=== PATIENT | female | born 1990 | race African-American/Black ===

== ENCOUNTER 2017-10-22 13:34 | Inpatient (IN) | payer OTHER ==
--- NOTE | 2017-10-22 14:27 | HP ---
COWS - Scale Resting Pulse: 0= IN 80 or Below Sweatin= Chills/Flushing Restless Observation: 3= Extraneous Movement Pupil Size: 2= Moderately Dilated Bone or Joint Aches: 4=Acute Joint/Muscle Pain Runny Nose/ Eye Tearin= None GI Upset > 30mins: 3= Vomiting/Diarrhea Tremor Observation: 1= Tremor [place], Not Seen Yawning Observation: 1= 1-2x During Session Anxiety or Irritability: 2=Irritable/Anxious Goose Flesh Skin: 0=Smooth Skin COWS Score: 17 Admission [facility] Chief Complaint: HEROIN WITHDRAWAL SX Allergies/Adverse Reactions: Allergies Allergy/AdvReac Type Severity Reaction Status Date / Time No Known Allergies Allergy Verified 10/22/17 14:11 History of Present Illness: 27 Y/O AA/TRANSGENDER MALE WITH A HX OF HEROIN DEPENDENCE SEEKING DETOX [place]. FIRST TIME HERE. PT REPORTS PRIMARY CARE WITH [facility] AT [address] [place] [address]. KYLE Dan PT HAS A HX OF HIV+ SINCE 2012. REPORTS HE IS CURRENTLY ON TRUVADA AND TIVICAY BUT DID NOT BRING ANY MEDS WITH HIM. Exam Limitations: No Limitations - Ebola screening Have you traveled outside of the country in the last 21 days: No Have you had contact with anyone from an Ebola affected area: No Have you been sick,other than usual withdrawal symptoms: No Do you have a fever: No - Review of Systems Constitutional: Chills, Loss of Appetite, Night Sweats, Changes in sleep, Unintentional Wgt. Loss EENT: reports: Tearing, Nose Congestion, Dental Problems (MISSING TEETH) Respiratory: reports: Shortness of Breath (HX ASTHMA), Wheezing Cardiac: reports: Lightheadedness GI: reports: Constipated, Nausea, Poor Appetite, Poor Fluid Intake, Vomiting : reports: Dysuria Musculoskeletal: reports: Back Pain, Joint Pain, Muscle Pain Integumentary: reports: No Symptoms Reported Neuro: reports: Numbness, Tingling, Tremors, Unsteady Gait Endocrine: reports: No Symptoms Reported Hematology: reports: No Symptoms Reported Psychiatric: reports: Orientated x3, Anxious, Depressed Other Systems: Reviewed and Negative Patient History - Patient Medical History Hx Anemia: No Hx Asthma: Yes (MDI) Hx Chronic Obstructive Pulmonary Disease (COPD): No Hx Cardiac Disorders: No Hx Hypertension: No Hx Hypercholesterolemia: No HX Cerebrovascular Accident: No Hx Seizures: No Hx Diabetes: No Hx Gastrointestinal Disorders: No Hx Genitourinary Disorders: No Hx Sexually Transmitted Disorders: No Hx Renal Disease (ESRD): No Hx Thyroid Disease: No Hx Human Immunodeficiency Virus (HIV): Yes (SINCE 2012;ON TRUVADA AND TIVICAY.) Hx Hepatitis C: No Hx Depression: Yes (ON MED) Hx Suicide Attempt: Yes (SELF CUTTING;DENIES CURRENT S/I TODAY) Hx Bipolar Disorder: Yes Hx Schizophrenia: Yes - Patient Surgical History Past Surgical History: Yes Hx Breast Surgery: Yes (BREAST AUGMENTATION) Hx Genitourinary Surgery: Yes (ORCHIECTOMY) Anesthesia Reaction: No - PPD History Previous Implant?: Yes Documented Results: Negative w/o proof Implanted On Prior [facility] Admission?: No PPD to be Administered?: Yes - Reproductive History Patient is a Female of Child Bearing Age (11 -55 yrs old): No (TRANSGENDER MALE) - Smoking Cessation Smoking history: Current every day smoker Have you smoked in the past 12 months: Yes Aproximately how many cigarettes per day: 10 Hx Chewing Tobacco Use: No Initiated information on smoking cessation: Yes 'Breaking Loose' booklet given: 10/22/17 - Substance & Tx. History Hx Alcohol Use: No (DENIES) Hx Substance Use: Yes (HEROIN) Substance Use Type: Heroin Hx Substance Use Treatment: No ([facility] [place]) - Substances Abused Heroin Route: Inhalation Frequency: Daily Amount used: 7 BAGS Age of first use: 27 Date of Last Use: 10/20/17 Family Disease History - Family Disease History Family Disease History: Diabetes: Grandparent (GRANDMOTHER) Admission Physical Exam S - Vital Signs Vital Signs: Vital Signs - 24 hr 10/22/17 14:17 Temperature 96 F L Pulse Rate 66 Respiratory 20 Rate Blood Pressure 129/71 - Physical General Appearance: Yes: Moderate Distress, Irritable, Anxious, Other (RESTLESS) HEENTM: Yes: EOMI, Normocephalic, FREDY, Pharynx Normal Respiratory: Yes: Chest Non-Tender, Lungs Clear, Normal Breath Sounds, No Respiratory Distress Neck: Yes: No masses,lesions,Nodules, Supple, Trachea in good position Breast: Yes: Breast Exam Deferred Cardiology: Yes: Regular Rhythm, Regular Rate, S1, S2 Abdominal: Yes: Normal Bowel Sounds, Non Tender, Flat, Soft Genitourinary: Yes: Other (N/C) Back: Yes: Within Normal Limits Musculoskeletal: Yes: full range of Motion, Gait Steady Extremities: Yes: Normal Range of Motion, Non-Tender Neurological: Yes: car cooper II-XII NML intact, Fully Oriented, Alert, Motor Strength 5/5 Integumentary: Yes: Dry, Warm Lymphatic: Yes: Within Normal Limits - Diagnostic (1) Opioid dependence with withdrawal Current Visit: Yes Status: Acute (2) HIV (human immunodeficiency virus infection) Current Visit: Yes Status: Chronic (3) Hx of AIDS Current Visit: Yes Status: Chronic (4) History of psychiatric disorder Current Visit: Yes Status: Chronic (5) S/P breast augmentation Current Visit: Yes Status: Chronic [facility] Level of Care: Medically Managed Detox Regimen/Protocol: Methadone [facility] Breath Alcohol Content Breath Alcohol Content: 0 Urine Pregancy Test - Result Urine Test Results: Negative- NO Line Present Urine Drug Screen - Results Drug Screen Negative: No Urine Drug Screen Results: OPI-Opiates, MTD-Methadone
[2017-10-22] MEDS ORDERED: guaiFENesin/D-METHORPHAN HB 10 ML UNIT-DOSE CUPS PO PRN (14:53)
[2017-10-22] MEDS ORDERED: MAGNESIUM CITRATE 300 ML BOTTLE PO PRN (14:53)
[2017-10-22] MEDS ORDERED: NICOTINE POLACRILEX 2 MG GUM BUC PRN (14:53)
[2017-10-22] MEDS ORDERED: MAG HYDROX/AL HYDROX/SIMETH 30 ML UNIT-DOSE CUP PO PRN (14:53)
[2017-10-22] MEDS ORDERED: MENTHOL/PHENOL 1 EACH UD MM PRN (14:53)
[2017-10-22] MEDS ORDERED: IBUPROFEN 400 MG TABLET (FP) PO PRN (14:53)
[2017-10-22] MEDS ORDERED: P-EPHED 60MG/TRIPROLIDI 2.5MG TABLET PO PRN (14:53)
[2017-10-22] MEDS ORDERED: MAGNESIUM HYDROX 2400MG/30ML ORAL SUSPENSION 30 ML CUP PO PRN (14:53)
[2017-10-22] MEDS ORDERED: LOPERAMIDE HCL 2 MG CAPSULE PO PRN (14:53)
[2017-10-22] MEDS ORDERED: METHADONE HCL 10 MG TABLET (FOR DETOX USE ONLY) PO ONE ×2 (15:15→23:00)
[2017-10-22] MEDS ORDERED: TRIMETHOBENZAMIDE HCL 200MG/2ML INJ IM ONE (15:15)
--- NOTE | 2017-10-22 15:22 | CONSULT ---
[facility] Psychiatric Consult - Data Date of interview: 10/22/17 Admission source: [facility] Identifying data: This is 27 years old AA female, single, unemployed, livinmg alone, on SSI, with history of Schizophrenia, Bipolar Disorder, reports long history abusing Heroin, currently seeking detox after Heroin/Methadone intoxication. Substance Abuse History: - Smoking Cessation. Smoking history: Current every day smoker. Have you smoked in the past 12 months: Yes. Aproximately how many cigarettes per day: 10. Hx Chewing Tobacco Use: No. Initiated information on smoking cessation: Yes. 'Breaking Loose' booklet given: 10/22/17. - Substance & Tx. History. Hx Alcohol Use: No (DENIES). Hx Substance Use: Yes (HEROIN). Substance Use Type: Heroin. Hx Substance Use Treatment: No ([facility] [place]). - Substances Abused. Heroin. Route: Inhalation. Frequency: Daily. Amount used: 7 BAGS. Age of first use: 27. Date of Last Use: 10/20/17 Medical History: HIV+ history Psychiatric History: Patient reports history of Bipolar disorder, Schizophrenioa , reports history of multiple psychiatric hospitalizations with most recent one 4-5 months ago at [facility]. Currently on: Seroquel 200mg po qhs. Abilify 30mg po qd. Patient reports history of suicidal ideation and Suicidal attempets by self cutting her wrists, no stitches applyed , no stitches visible, denies suicidal,homicidal ideation at this time, reports having suicidal ideations when she is ran off her medications. Physical/Sexual Abuse/Trauma History: Unclear Additional Comment: Seroquel 200mg po qhs. Abilify 30mg po qd Mental Status Exam - Mental Status Exam Alert and Oriented to: Person Cognitive Function: Fair Patient Appearance: Unkempt Mood: Suspicious Affect: Constricted Patient Behavior: Cooperative Speech Pattern: Appropriate Voice Loudness: Mildly Loud Thought Process: Goal Oriented Thought Disorder: Being Controlled Hallucinations: Denies Suicidal Ideation: Denies Homicidal Ideation: Denies Insight/Judgement: Fair Sleep: Difficulty falling asleep Appetite: Weight loss Muscle strength/Tone: Normal Gait/Station: Normal Additional Comments: Seroquel 200mg po qhs. Abilify 30mg po qd Psychiatric Findings - Problem List ([place] 1, 2,3) (1) Nicotine dependence Current Visit: Yes Status: Acute (2) Bipolar disorder Current Visit: Yes Status: Acute (3) Schizophrenia Current Visit: Yes Status: Acute (4) Opioid dependence with withdrawal Current Visit: Yes Status: Acute (5) Opioid-induced psychotic disorder Current Visit: Yes Status: Acute - Initial Treatment Plan Initial Treatment Plan: Seroquel 200mg po qhs. Abilify 30mg po qd
[2017-10-22 18:04] LABS: URINE APPEARANCE SLCLOUDY; URINE BILIRUBIN NEGATIVE (<2.0 mg/dL); URINE BLOOD NEGATIVE (NEGATIVE); URINE COLOR YELLOW; URINE GLUCOSE (UA) NEGATIVE (NEGATIVE); URINE KETONE NEGATIVE (NEGATIVE); URINE LEUK ESTERASE NEGATIVE (NEGATIVE); URINE NITRITE NEGATIVE (NEGATIVE); URINE PROTEIN NEGATIVE (NEGATIVE)
[2017-10-22] MEDS: ARIPiprazole 15 MG TABLET PO SCH (18:39)
[2017-10-22] MEDS: NICOTINE 14 MG/24 HOURS TOPICAL PATCH TD SCH (18:43)
[2017-10-22] MEDS: ONDANSETRON *ODT* 4 MG TABLET SL PRN (20:42)
[2017-10-22] MEDS: THIAMINE HCL 100 MG TABLET (FP) PO SCH (22:29)
[2017-10-22] MEDS: cloNIDine HCL 0.1 MG TABLET PO PRN (22:29)
[2017-10-22] MEDS: diazePAM 5 MG TABLET PO PRN (22:29)
[2017-10-22] MEDS: CYCLOBENZAPRINE HCL 10 MG TABLET (FP) PO PRN (22:29)
[2017-10-22] MEDS: QUEtiapine FUMARATE 200 MG TABLET PO SCH (22:30)
[2017-10-23] MEDS ORDERED: METHADONE HCL 10 MG TABLET (FOR DETOX USE ONLY) PO ONE (10:00)
--- NOTE | 2017-10-23 10:03 | EKG ---
Test Reason : Blood Pressure : / mmHG Vent. Rate : 052 BPM Atrial Rate : 071 BPM P-R Int : 000 ms QRS Dur : 086 ms QT Int : 518 ms P-R-T Axes : 074 085 074 degrees QTc Int : 481 ms SINUS RHYTHM WITH 2ND DEGREE A-V BLOCK (MOBITZ I) T WAVE ABNORMALITY, CONSIDER ANTERIOR ISCHEMIA ABNORMAL ECG NO PREVIOUS ECGS AVAILABLE Confirmed by RINA FRANCISCO MD ([id number]) on 10/23/2017 10:02:40 AM Referred By: Confirmed By:RINA FRANCISCO MD
--- NOTE | 2017-10-23 10:17 | PN ---
[facility] COWS - Scale Resting Pulse: 0= MA 80 or Below Sweatin= Chills/Flushing Restless Observation: 1= Difficult to Sit Still Pupil Size: 1= Pupils >than Normal Bone or Joint Aches: 1= Mild Discomfort Runny Nose/ Eye Tearin= Nasal Congestion GI Upset > 30mins: 3= Vomiting/Diarrhea Tremor Observation of Outstretched Hands: 1= Tremor [place], Not Seen Yawning Observation: 1= 1-2x During Session Anxiety or Irritability: 2=Irritable/Anxious Goose Flesh Skin: 0=Smooth Skin COWS Score: 12 BHS Progress Note (SOAP) Subjective: nausea, sweats, interrupted sleep, vomting, not eating, anxiety, trmeors Objective: 10/23/17 10:16 Vital Signs - 24 hr 10/22/17 10/22/17 10/22/17 14:17 18:00 22:00 Temperature 96 F L 97.7 F 97.9 F Pulse Rate 66 67 65 Respiratory 20 16 18 Rate Blood Pressure 129/71 109/65 132/81 10/23/17 10/23/17 10/23/17 00:30 03:30 07:26 Temperature 98 F Pulse Rate 64 Respiratory 18 18 18 Rate Blood Pressure 129/79 Laboratory Tests 10/22/17 15:00 Urine Color Yellow Urine Appearance Slcloudy Urine pH 7.0 Ur Specific [place] 1.027 Urine Protein Negative Urine Glucose (UA) Negative Urine Ketones Negative Urine Blood Negative Urine Nitrite Negative Urine Bilirubin Negative Urine Urobilinogen 2.0 H Ur Leukocyte Esterase Negative labs pending Assessment: 10/23/17 10:16 withdrawla SX, CONT DETOX ZOFRAN FOR NAUSEA, FLUIIDS, SYMPTOMATIC RELIEF OF WITHDRAWAL, CHECK LABS, ENCORUAGE AMBUALTION
[2017-10-23] MEDS: NICOTINE 14 MG/24 HOURS TOPICAL PATCH TD SCH (10:31)
[2017-10-23] MEDS: ARIPiprazole 15 MG TABLET PO SCH (10:31)
[2017-10-23] MEDS: PRENATAL VITAMINS W/ FOLIC ACID TABLET (FP) PO SCH (10:31)
[2017-10-23] MEDS: CYCLOBENZAPRINE HCL 10 MG TABLET (FP) PO PRN (10:32)
[2017-10-23] MEDS: cloNIDine HCL 0.1 MG TABLET PO PRN (10:32)
[2017-10-23] MEDS: diazePAM 5 MG TABLET PO PRN ×2 (10:32→22:16)
[2017-10-23 10:41] LABS: HEMATOCRIT 38.9 % (32.4-45.2); HEMOGLOBIN 13.5 GM/dL (10.7-15.3); MCH 32.5 pg (25.7-33.7); MCHC 34.8 g/dl (32.0-36.0); MEAN CELL VOLUME 93.4 fl (80-96); MEAN PLT VOLUME 7.6 fl (7.5-11.1); PLATELET COUNT 279 K/MM3 (134-434); RBC 4.16 M/mm3 (3.60-5.2); RDW 13.6 % (11.6-15.6); WHITE BLOOD COUNT 5.2 K/mm3 (4.0-10.0)
[2017-10-23] MEDS ORDERED: ONDANSETRON *ODT* 4 MG TABLET SL ONE (10:45)
[2017-10-23 10:53] LABS: ALBUMIN 4.4 g/dl (3.4-5.0); ANION GAP 8 (8-16); BLOOD UREA NITROGEN 18 mg/dL (7-18); CHLORIDE 103 mmol/L (98-107); CO2 25 mmol/L (21-32); GLUCOSE,RANDOM 109 mg/dL (74-106); SODIUM 136 mmol/L (136-145)
[2017-10-23 10:56] LABS: ALK PHOS 89 U/L (45-117); BILIRUBIN,TOTAL 0.5 mg/dL (0.2-1.0); CREATININE 0.8 mg/dL (0.55-1.02); SGOT/AST 55 U/L (15-37); SGPT/ALT 88 U/L (12-78); TOT PROT 7.9 g/dl (6.4-8.2)
[2017-10-23 11:11] LABS: SICKLE CELL SCREEN NEGATIVE (NEGATIVE)
[2017-10-23] MEDS: ACETAMINOPHEN 325 MG TABLET (FP) PO PRN (11:18)
[2017-10-23] MEDS: QUEtiapine FUMARATE 200 MG TABLET PO SCH (22:16)
[2017-10-23] MEDS: THIAMINE HCL 100 MG TABLET (FP) PO SCH (22:16)
[2017-10-23] MEDS: MELATONIN 5 MG TABLETS PO PRN (22:17)
[2017-10-24] MEDS ORDERED: METHADONE HCL 5 MG TABLET (FOR DETOX USE ONLY) PO ONE (10:00)
[2017-10-24] MEDS: ARIPiprazole 15 MG TABLET PO SCH (10:52)
[2017-10-24] MEDS: PRENATAL VITAMINS W/ FOLIC ACID TABLET (FP) PO SCH (10:52)
[2017-10-24] MEDS: NICOTINE 14 MG/24 HOURS TOPICAL PATCH TD SCH (10:52)
[2017-10-24] MEDS: ONDANSETRON *ODT* 4 MG TABLET SL PRN ×2 (11:39→18:23)
[2017-10-24] MEDS: ACETAMINOPHEN 325 MG TABLET (FP) PO PRN (13:01)
--- NOTE | 2017-10-24 15:24 | PN ---
BHS COWS - Scale Resting Pulse: 0= MD 80 or Below Sweatin=Flushed/Facial Moisture Restless Observation: 0= Sits Still Pupil Size: 0= Normal to Room Light Bone or Joint Aches: 2= Severe Diffuse Aches Runny Nose/ Eye Tearin= Nasal Congestion GI Upset > 30mins: 5=Frequent Vomit/Diarrhea Tremor Observation of Outstretched Hands: 2= Slight Tremor Visible Yawning Observation: 1= 1-2x During Session Anxiety or Irritability: 2=Irritable/Anxious Goose Flesh Skin: 0=Smooth Skin COWS Score: 15 S Progress Note (SOAP) Subjective: nauseous weak Objective: 10/24/17 15:21 sleepy but arousable A & O x 3 Vomiting Vital Signs Temperature 100.4 F H 10/24/17 14:00 Pulse Rate 86 10/24/17 14:00 Respiratory Rate 18 10/24/17 14:00 Blood Pressure 119/79 10/24/17 14:00 O2 Sat by Pulse Oximetry (%) Laboratory Last Values WBC 5.2 K/mm3 (4.0-10.0) 10/23/17 07:00 RBC 4.16 M/mm3 (3.60-5.2) 10/23/17 07:00 Hgb 13.5 GM/dL (10.7-15.3) 10/23/17 07:00 Hct 38.9 % (32.4-45.2) 10/23/17 07:00 MCV 93.4 fl (80-96) 10/23/17 07:00 MCH 32.5 pg (25.7-33.7) 10/23/17 07:00 MCHC 34.8 g/dl (32.0-36.0) 10/23/17 07:00 RDW 13.6 % (11.6-15.6) 10/23/17 07:00 Plt Count 279 K/MM3 (134-434) 10/23/17 07:00 MPV 7.6 fl (7.5-11.1) 10/23/17 07:00 Sickle Cell Screen Negative (NEGATIVE) 10/23/17 07:00 Sodium 136 mmol/L (136-145) 10/23/17 07:00 Potassium 4.0 mmol/L (3.5-5.1) 10/23/17 07:00 Chloride 103 mmol/L (98-107) 10/23/17 07:00 Carbon Dioxide 25 mmol/L (21-32) 10/23/17 07:00 Anion Gap 8 (8-16) 10/23/17 07:00 BUN 18 mg/dL (7-18) 10/23/17 07:00 Creatinine 0.8 mg/dL (0.55-1.02) 10/23/17 07:00 Creat Clearance w eGFR > 60 (>60) 10/23/17 07:00 Random Glucose 109 mg/dL (74-106) H 10/23/17 07:00 Calcium 9.0 mg/dL (8.5-10.1) 10/23/17 07:00 Total Bilirubin 0.5 mg/dL (0.2-1.0) 10/23/17 07:00 AST 55 U/L (15-37) H 10/23/17 07:00 ALT 88 U/L (12-78) H 10/23/17 07:00 Alkaline Phosphatase 89 U/L (45-117) 10/23/17 07:00 Total Protein 7.9 g/dl (6.4-8.2) 10/23/17 07:00 Albumin 4.4 g/dl (3.4-5.0) 10/23/17 07:00 Urine Color Yellow 10/22/17 15:00 Urine Appearance Slcloudy 10/22/17 15:00 Urine pH 7.0 (5.0-8.0) 10/22/17 15:00 Ur Specific [place] 1.027 (1.001-1.035) 10/22/17 15:00 Urine Protein Negative (NEGATIVE) 10/22/17 15:00 Urine Glucose (UA) Negative (NEGATIVE) 10/22/17 15:00 Urine Ketones Negative (NEGATIVE) 10/22/17 15:00 Urine Blood Negative (NEGATIVE) 10/22/17 15:00 Urine Nitrite Negative (NEGATIVE) 10/22/17 15:00 Urine Bilirubin Negative (<2.0 mg/dL) 10/22/17 15:00 Urine Urobilinogen 2.0 mg/dL (0.2-1.0) H 10/22/17 15:00 Ur Leukocyte Esterase Negative (NEGATIVE) 10/22/17 15:00 RPR Titer Nonreactive (NONREACTIVE) 10/23/17 07:00 labs noted, high urobilinogen and liver enzymes Assessment: 10/24/17 15:24 withdrawal sx ? liver cirrhosis ?Hep C Plan: continue detox continue increased hydration zofran for vomiting motrin for fever
[2017-10-24] MEDS: QUEtiapine FUMARATE 200 MG TABLET PO SCH (22:41)
[2017-10-24] MEDS: THIAMINE HCL 100 MG TABLET (FP) PO SCH (22:41)
[2017-10-24] MEDS: CYCLOBENZAPRINE HCL 10 MG TABLET (FP) PO PRN (22:42)
[2017-10-25] MEDS: diazePAM 5 MG TABLET PO PRN ×2 (05:40→10:25)
[2017-10-25] MEDS: IBUPROFEN 400 MG TABLET (FP) PO PRN ×2 (05:40→17:22)
[2017-10-25] MEDS: CYCLOBENZAPRINE HCL 10 MG TABLET (FP) PO PRN (05:40)
--- NOTE | 2017-10-25 08:33 | EKG ---
Test Reason : Blood Pressure : / mmHG Vent. Rate : 062 BPM Atrial Rate : 062 BPM P-R Int : 180 ms QRS Dur : 086 ms QT Int : 442 ms P-R-T Axes : 038 078 077 degrees QTc Int : 448 ms NORMAL SINUS RHYTHM WITH SINUS ARRHYTHMIA NORMAL ECG WHEN COMPARED WITH ECG OF 22-OCT-2017 16:54, SINUS RHYTHM IS NO LONGER WITH 2ND DEGREE A-V BLOCK (MOBITZ I) Confirmed by CHENCHO BARRIOS, LICO ([id number]) on 10/25/2017 8:33:23 AM Referred By: Confirmed By:LICO PAIZ MD
[2017-10-25] MEDS ORDERED: METHADONE HCL 5 MG TABLET (FOR DETOX USE ONLY) PO ONE (10:00)
[2017-10-25] MEDS: PRENATAL VITAMINS W/ FOLIC ACID TABLET (FP) PO SCH (10:25)
[2017-10-25] MEDS: NICOTINE 14 MG/24 HOURS TOPICAL PATCH TD SCH (10:25)
[2017-10-25] MEDS: ARIPiprazole 15 MG TABLET PO SCH (10:25)
[2017-10-25] MEDS: ONDANSETRON *ODT* 4 MG TABLET SL PRN (13:10)
--- NOTE | 2017-10-25 14:29 | PN ---
S Progress Note (SOAP) Subjective: joint pain body ache vomiting zofrain sl x 1 yesica joie ensure + oral fluid Objective: 10/25/17 14:36 Vital Signs Temperature 100.2 F H 10/25/17 14:07 Pulse Rate 90 10/25/17 14:07 Respiratory Rate 20 10/25/17 14:07 Blood Pressure 101/65 10/25/17 14:07 O2 Sat by Pulse Oximetry (%) Laboratory Last Values WBC 5.2 K/mm3 (4.0-10.0) 10/23/17 07:00 RBC 4.16 M/mm3 (3.60-5.2) 10/23/17 07:00 Hgb 13.5 GM/dL (10.7-15.3) 10/23/17 07:00 Hct 38.9 % (32.4-45.2) 10/23/17 07:00 MCV 93.4 fl (80-96) 10/23/17 07:00 MCH 32.5 pg (25.7-33.7) 10/23/17 07:00 MCHC 34.8 g/dl (32.0-36.0) 10/23/17 07:00 RDW 13.6 % (11.6-15.6) 10/23/17 07:00 Plt Count 279 K/MM3 (134-434) 10/23/17 07:00 MPV 7.6 fl (7.5-11.1) 10/23/17 07:00 Sickle Cell Screen Negative (NEGATIVE) 10/23/17 07:00 Sodium 136 mmol/L (136-145) 10/23/17 07:00 Potassium 4.0 mmol/L (3.5-5.1) 10/23/17 07:00 Chloride 103 mmol/L (98-107) 10/23/17 07:00 Carbon Dioxide 25 mmol/L (21-32) 10/23/17 07:00 Anion Gap 8 (8-16) 10/23/17 07:00 BUN 18 mg/dL (7-18) 10/23/17 07:00 Creatinine 0.8 mg/dL (0.55-1.02) 10/23/17 07:00 Creat Clearance w eGFR > 60 (>60) 10/23/17 07:00 Random Glucose 109 mg/dL (74-106) H 10/23/17 07:00 Calcium 9.0 mg/dL (8.5-10.1) 10/23/17 07:00 Total Bilirubin 0.5 mg/dL (0.2-1.0) 10/23/17 07:00 AST 55 U/L (15-37) H 10/23/17 07:00 ALT 88 U/L (12-78) H 10/23/17 07:00 Alkaline Phosphatase 89 U/L (45-117) 10/23/17 07:00 Total Protein 7.9 g/dl (6.4-8.2) 10/23/17 07:00 Albumin 4.4 g/dl (3.4-5.0) 10/23/17 07:00 Urine Color Yellow 10/22/17 15:00 Urine Appearance Slcloudy 10/22/17 15:00 Urine pH 7.0 (5.0-8.0) 10/22/17 15:00 Ur Specific [place] 1.027 (1.001-1.035) 10/22/17 15:00 Urine Protein Negative (NEGATIVE) 10/22/17 15:00 Urine Glucose (UA) Negative (NEGATIVE) 10/22/17 15:00 Urine Ketones Negative (NEGATIVE) 10/22/17 15:00 Urine Blood Negative (NEGATIVE) 10/22/17 15:00 Urine Nitrite Negative (NEGATIVE) 10/22/17 15:00 Urine Bilirubin Negative (<2.0 mg/dL) 10/22/17 15:00 Urine Urobilinogen 2.0 mg/dL (0.2-1.0) H 10/22/17 15:00 Ur Leukocyte Esterase Negative (NEGATIVE) 10/22/17 15:00 RPR Titer Nonreactive (NONREACTIVE) 10/23/17 07:00 lab noted Assessment: 10/25/17 14:37 withdrawal sx 10/25/17 14:37 vomiting fluid volume deficit Plan: continue detox continue zofrain yesica joie ensure oral fluid
[2017-10-25] MEDS: QUEtiapine FUMARATE 200 MG TABLET PO SCH (22:25)
[2017-10-25] MEDS: THIAMINE HCL 100 MG TABLET (FP) PO SCH (22:25)
[2017-10-26] MEDS ORDERED: METHADONE HCL 10 MG TABLET (FOR DETOX USE ONLY) PO ONE (10:00)
[2017-10-26] MEDS: PRENATAL VITAMINS W/ FOLIC ACID TABLET (FP) PO SCH (10:23)
[2017-10-26] MEDS: ARIPiprazole 15 MG TABLET PO SCH (10:23)
[2017-10-26] MEDS: NICOTINE 14 MG/24 HOURS TOPICAL PATCH TD SCH (10:24)
--- NOTE | 2017-10-26 11:10 | PN ---
S Progress Note (SOAP) Subjective: feeling better no tremor less sweat denies pain denies gi distress Objective: 10/26/17 11:09 Vital Signs Temperature 99.5 F 10/26/17 09:43 Pulse Rate 128 H 10/26/17 09:43 Respiratory Rate 2 L 10/26/17 09:43 Blood Pressure 104/69 10/26/17 09:43 O2 Sat by Pulse Oximetry (%) Laboratory Last Values WBC 5.2 K/mm3 (4.0-10.0) 10/23/17 07:00 RBC 4.16 M/mm3 (3.60-5.2) 10/23/17 07:00 Hgb 13.5 GM/dL (10.7-15.3) 10/23/17 07:00 Hct 38.9 % (32.4-45.2) 10/23/17 07:00 MCV 93.4 fl (80-96) 10/23/17 07:00 MCH 32.5 pg (25.7-33.7) 10/23/17 07:00 MCHC 34.8 g/dl (32.0-36.0) 10/23/17 07:00 RDW 13.6 % (11.6-15.6) 10/23/17 07:00 Plt Count 279 K/MM3 (134-434) 10/23/17 07:00 MPV 7.6 fl (7.5-11.1) 10/23/17 07:00 Sickle Cell Screen Negative (NEGATIVE) 10/23/17 07:00 Sodium 136 mmol/L (136-145) 10/23/17 07:00 Potassium 4.0 mmol/L (3.5-5.1) 10/23/17 07:00 Chloride 103 mmol/L (98-107) 10/23/17 07:00 Carbon Dioxide 25 mmol/L (21-32) 10/23/17 07:00 Anion Gap 8 (8-16) 10/23/17 07:00 BUN 18 mg/dL (7-18) 10/23/17 07:00 Creatinine 0.8 mg/dL (0.55-1.02) 10/23/17 07:00 Creat Clearance w eGFR > 60 (>60) 10/23/17 07:00 Random Glucose 109 mg/dL (74-106) H 10/23/17 07:00 Calcium 9.0 mg/dL (8.5-10.1) 10/23/17 07:00 Total Bilirubin 0.5 mg/dL (0.2-1.0) 10/23/17 07:00 AST 55 U/L (15-37) H 10/23/17 07:00 ALT 88 U/L (12-78) H 10/23/17 07:00 Alkaline Phosphatase 89 U/L (45-117) 10/23/17 07:00 Total Protein 7.9 g/dl (6.4-8.2) 10/23/17 07:00 Albumin 4.4 g/dl (3.4-5.0) 10/23/17 07:00 Urine Color Yellow 10/22/17 15:00 Urine Appearance Slcloudy 10/22/17 15:00 Urine pH 7.0 (5.0-8.0) 10/22/17 15:00 Ur Specific [place] 1.027 (1.001-1.035) 10/22/17 15:00 Urine Protein Negative (NEGATIVE) 10/22/17 15:00 Urine Glucose (UA) Negative (NEGATIVE) 10/22/17 15:00 Urine Ketones Negative (NEGATIVE) 10/22/17 15:00 Urine Blood Negative (NEGATIVE) 10/22/17 15:00 Urine Nitrite Negative (NEGATIVE) 10/22/17 15:00 Urine Bilirubin Negative (<2.0 mg/dL) 10/22/17 15:00 Urine Urobilinogen 2.0 mg/dL (0.2-1.0) H 10/22/17 15:00 Ur Leukocyte Esterase Negative (NEGATIVE) 10/22/17 15:00 RPR Titer Nonreactive (NONREACTIVE) 10/23/17 07:00 lab noted Assessment: 10/26/17 11:10 mild withdrawal sx Plan: medically supervised detox
[2017-10-26] MEDS: ONDANSETRON *ODT* 4 MG TABLET SL PRN (12:23)
[2017-10-26] MEDS: cloNIDine HCL 0.1 MG TABLET PO PRN (22:24)
[2017-10-26] MEDS: QUEtiapine FUMARATE 200 MG TABLET PO SCH (22:24)
[2017-10-26] MEDS: MELATONIN 5 MG TABLETS PO PRN (22:24)
[2017-10-26] MEDS: THIAMINE HCL 100 MG TABLET (FP) PO SCH (22:25)
[2017-10-27] MEDS ORDERED: METHADONE HCL 5 MG TABLET (FOR DETOX USE ONLY) PO ONE (06:00)
[2017-10-27] MEDS: IBUPROFEN 400 MG TABLET (FP) PO PRN (06:40)
[2017-10-27 07:06] VITALS: BP 100/62; PULSE 86; TEMP 98.4
--- NOTE | 2017-10-27 09:38 | DS ---
[facility] Detox Discharge Summary Admission Date: 10/22/17 Discharge Date: 10/27/17 - History Present History: Opioid Dependence Additional Comments: 27 years old female admitted 10/22/17 for opioid withdrawal sx completed detox regimen tolerated well denies opioid withdrawal sx alert oriented x 3 no acute distress aftercare promesa MMTP - Physical Exam Results Vital Signs: Vital Signs Temperature 98.4 F 10/27/17 07:05 Pulse Rate 86 10/27/17 07:05 Respiratory Rate 18 10/27/17 07:05 Blood Pressure 100/62 10/27/17 07:05 O2 Sat by Pulse Oximetry (%) Pertinent Admission Physical Exam Findings: withdrawal sx Vital Signs Temperature 98.4 F 10/27/17 07:05 Pulse Rate 86 10/27/17 07:05 Respiratory Rate 18 10/27/17 07:05 Blood Pressure 100/62 10/27/17 07:05 O2 Sat by Pulse Oximetry (%) Laboratory Last Values WBC 5.2 K/mm3 (4.0-10.0) 10/23/17 07:00 RBC 4.16 M/mm3 (3.60-5.2) 10/23/17 07:00 Hgb 13.5 GM/dL (10.7-15.3) 10/23/17 07:00 Hct 38.9 % (32.4-45.2) 10/23/17 07:00 MCV 93.4 fl (80-96) 10/23/17 07:00 MCH 32.5 pg (25.7-33.7) 10/23/17 07:00 MCHC 34.8 g/dl (32.0-36.0) 10/23/17 07:00 RDW 13.6 % (11.6-15.6) 10/23/17 07:00 Plt Count 279 K/MM3 (134-434) 10/23/17 07:00 MPV 7.6 fl (7.5-11.1) 10/23/17 07:00 Sickle Cell Screen Negative (NEGATIVE) 10/23/17 07:00 Sodium 136 mmol/L (136-145) 10/23/17 07:00 Potassium 4.0 mmol/L (3.5-5.1) 10/23/17 07:00 Chloride 103 mmol/L (98-107) 10/23/17 07:00 Carbon Dioxide 25 mmol/L (21-32) 10/23/17 07:00 Anion Gap 8 (8-16) 10/23/17 07:00 BUN 18 mg/dL (7-18) 10/23/17 07:00 Creatinine 0.8 mg/dL (0.55-1.02) 10/23/17 07:00 Creat Clearance w eGFR > 60 (>60) 10/23/17 07:00 Random Glucose 109 mg/dL (74-106) H 10/23/17 07:00 Calcium 9.0 mg/dL (8.5-10.1) 10/23/17 07:00 Total Bilirubin 0.5 mg/dL (0.2-1.0) 10/23/17 07:00 AST 55 U/L (15-37) H 10/23/17 07:00 ALT 88 U/L (12-78) H 10/23/17 07:00 Alkaline Phosphatase 89 U/L (45-117) 10/23/17 07:00 Total Protein 7.9 g/dl (6.4-8.2) 10/23/17 07:00 Albumin 4.4 g/dl (3.4-5.0) 10/23/17 07:00 Urine Color Yellow 10/22/17 15:00 Urine Appearance Slcloudy 10/22/17 15:00 Urine pH 7.0 (5.0-8.0) 10/22/17 15:00 Ur Specific [place] 1.027 (1.001-1.035) 10/22/17 15:00 Urine Protein Negative (NEGATIVE) 10/22/17 15:00 Urine Glucose (UA) Negative (NEGATIVE) 10/22/17 15:00 Urine Ketones Negative (NEGATIVE) 10/22/17 15:00 Urine Blood Negative (NEGATIVE) 10/22/17 15:00 Urine Nitrite Negative (NEGATIVE) 10/22/17 15:00 Urine Bilirubin Negative (<2.0 mg/dL) 10/22/17 15:00 Urine Urobilinogen 2.0 mg/dL (0.2-1.0) H 10/22/17 15:00 Ur Leukocyte Esterase Negative (NEGATIVE) 10/22/17 15:00 RPR Titer Nonreactive (NONREACTIVE) 10/23/17 07:00 lab noted - Treatment Hospital Course: Detox Protocol Followed, Detoxed Safely, Responded well, Discharged Condition Good, Rehab Referral Accepted Patient has Accepted a Rehab Referral to: [facility] - Medication Discharge Medications: Ambulatory Orders Aripiprazole [Abilify -] 30 mg PO DAILY #30 tablet 10/22/17 Aripiprazole [Abilify -] 50 mg PO DAILY 10/22/17 Quetiapine Fumarate [Seroquel -] 200 mg PO HS #30 tablet 10/22/17 - Diagnosis (1) Nicotine dependence Current Visit: Yes Status: Acute Qualifiers: Nicotine product type: cigarettes Substance use status: in withdrawal Qualified Code(s): F17.213 - Nicotine dependence, cigarettes, with withdrawal (2) Opioid dependence with withdrawal Current Visit: Yes Status: Acute (3) HIV (human immunodeficiency virus infection) Current Visit: Yes Status: Chronic - AMA Did Patient Leave Against Medical Advice: No
== END 2017-10-27 09:04 | disposition home or self-care (01) | DRG 773 ==
LOC: YASAS 13:34 → Y6N 15:09
PROVIDERS: ADMIT Internal Medicine; ATTEND Internal Medicine
PROC: HZ2ZZZZ Detoxification Services for Substance Abuse Treatment (ICD-10-PCS; principal; 2017-10-22)
DX: F11.23 Opioid dependence with withdrawal (principal); F17.213 Nicotine dependence, cigarettes, with withdrawal; F31.9 Bipolar disorder, unspecified; F20.9 Schizophrenia, unspecified; Z21 Asymptomatic human immunodeficiency virus [HIV] infection status; J45.909 Unspecified asthma, uncomplicated; Z87.890 Personal history of sex reassignment; Z91.5 Personal history of self-harm; Z98.82 Breast implant status
CPT/HCPCS: 36415; 80053; 81003; 85027; 85660; 86593; 93005; 93010; J0735; Q0162